=== PATIENT | female | born 1935 | race Caucasian/White ===

== ENCOUNTER 2018-03-20 12:18 | Outpatient (CLI) | payer MEDICARE | END 2018-03-20 12:19 | disposition home or self-care (01) | LOC: CP 12:18 | PROVIDERS: ATTEND Internal Medicine Critical Care Medicine | DX: J44.9 Chronic obstructive pulmonary disease, unspecified (principal) | CPT/HCPCS: 94060; 94727; 94729 ==

== ENCOUNTER 2018-10-31 13:36 | Outpatient (CLI) | payer MEDICARE ==
--- NOTE | 2018-10-31 14:12 | RAD ---
TWO VIEW CHEST: 10/31/18 HISTORY: Dyspnea. Lungs appear clear. Mild hyperexpansion flattens diaphragms. Heart size is normal. Aortic calcificati on is seen. There is a calcified granuloma in the peripheral left lung. Osseous structures are unrema rkable. IMPRESSION: There are chronic changes as described. No acute process. POS: [facility]
== END 2018-10-31 13:37 | disposition home or self-care (01) ==
LOC: RAD 13:36
PROVIDERS: ATTEND Internal Medicine Critical Care Medicine
DX: R06.00 Dyspnea, unspecified (principal); I70.0 Atherosclerosis of aorta; D71 Functional disorders of polymorphonuclear neutrophils
CPT/HCPCS: 71046

== ENCOUNTER 2020-12-29 10:52 | Outpatient (CLI) | payer MEDICARE ==
[~2020-12-29 10:52] MED LIST: Iopamidol-370 76% 500 ML 1 ML ONE
== END 2020-12-29 10:53 | disposition home or self-care (01) ==
LOC: BICCT 10:52
PROVIDERS: ATTEND Internal Medicine Critical Care Medicine
DX: R91.1 Solitary pulmonary nodule (principal); J43.9 Emphysema, unspecified; N28.1 Cyst of kidney, acquired; I25.10 Atherosclerotic heart disease of native coronary artery without angina pectoris; I70.0 Atherosclerosis of aorta
CPT/HCPCS: 71260; 82565; Q9967

== ENCOUNTER 2021-08-25 14:31 | Outpatient (CLI) | payer MEDICARE | END 2021-08-25 14:32 | disposition home or self-care (01) | LOC: BICULT 14:31 | PROVIDERS: ATTEND Internal Medicine Cardiovascular Disease | DX: E04.1 Nontoxic single thyroid nodule (principal) | CPT/HCPCS: 76536 ==

== ENCOUNTER 2022-01-18 10:08 | Outpatient (CLI) | payer MEDICARE | END 2022-01-18 10:09 | disposition home or self-care (01) | LOC: BICCT 10:08 | PROVIDERS: ATTEND Internal Medicine Critical Care Medicine | DX: R91.1 Solitary pulmonary nodule (principal) | CPT/HCPCS: 71260; 82565; Q9967 ==

== ENCOUNTER 2023-01-05 07:46 | Outpatient (CLI) | payer MEDICARE ==
[2023-01-05] MEDS ORDERED: Iopamidol 370 76% 100 ML VIAL ONE (14:51)
== END 2023-01-05 07:47 | disposition home or self-care (01) ==
LOC: CT 07:46
PROVIDERS: ATTEND Internal Medicine Critical Care Medicine
DX: R91.1 Solitary pulmonary nodule (principal); J43.2 Centrilobular emphysema; E04.2 Nontoxic multinodular goiter; I70.0 Atherosclerosis of aorta; N28.1 Cyst of kidney, acquired; J84.10 Pulmonary fibrosis, unspecified
CPT/HCPCS: 71260; 82565; Q9967

== ENCOUNTER 2023-02-22 21:41 | Observation (INO) | payer MEDICARE ==
[2023-02-23] MEDS ORDERED: Nitroglycerin 2% Ointment 1 INCH/1 GM Packet TOP SCH (00:15)
[2023-02-23 00:48] LABS: Troponin I Less than 0.010 ng/mL (< 0.028)
[2023-02-23] MEDS: Ipratropium/Albuterol 3 ML NEB NEB SCH ×3 (01:00→14:28)
[2023-02-23 03:19] LABS: Troponin I 0.011 ng/mL (< 0.028)
[2023-02-23] MEDS ORDERED: Mometasone 100 MCG HFA INHALER (RT USE) INH SCH (06:30)
[2023-02-23] MEDS ORDERED: Aspirin Chewable 81 MG TAB PO SCH (09:00)
[2023-02-23] MEDS ORDERED: Rosuvastatin 10 MG TAB PO SCH (09:00)
[2023-02-23] MEDS ORDERED: Lisinopril 2.5 MG TAB PO SCH (09:00)
[2023-02-23] MEDS ORDERED: Colestipol 1 GM TAB PO SCH (09:00)
[2023-02-23] MEDS ORDERED: Vit A,C & E/Lutein/Minerals Tablet PO SCH (09:00)
[2023-02-23] MEDS ORDERED: Clopidogrel Bisulfate 75 MG TAB PO SCH (09:00)
[2023-02-23] MEDS ORDERED: Ipratropium/Albuterol 3 ML NEB NEB PRN (14:45)
[2023-02-23 16:07] VITALS: BP 150/70; TEMP 98
== END 2023-02-23 18:06 | disposition home or self-care (01) ==
LOC: INTOOBSV 22:51 → 2NO 22:51
PROVIDERS: ADMIT Student in an Organized Health Care Education/Training Program; ATTEND Internal Medicine
DX: R07.9 Chest pain, unspecified (principal); I11.0 Hypertensive heart disease with heart failure; I50.30 Unspecified diastolic (congestive) heart failure; E78.5 Hyperlipidemia, unspecified; I16.0 Hypertensive urgency; E04.1 Nontoxic single thyroid nodule; I73.9 Peripheral vascular disease, unspecified; I65.29 Occlusion and stenosis of unspecified carotid artery; Z79.02 Long term (current) use of antithrombotics/antiplatelets; Z79.899 Other long term (current) drug therapy; J44.9 Chronic obstructive pulmonary disease, unspecified
CPT/HCPCS: 71045; 71275; 80053; 83690; 83880; 84484 ×3; 85025; 85379; 93005; 94640 ×2; 94760 ×2; 96374; 96375; 99285; G0378; 36415; 93010; J2930; J7620; Q9967